=== PATIENT | female | born 1950 | race Caucasian/White ===

== ENCOUNTER 2019-08-10 11:09 | Emergency (ER) | payer MEDICARE, OTHER ==
[2019-08-10 11:20] VITALS: BP 142/68
--- NOTE | 2019-08-10 11:29 | ED Physician Documentation ---
PD HPI UPPER EXT INJURY - Stated complaint Stated Complaint: GLF - Chief complaint Chief Complaint: Trauma Ext - History obtained from History obtained from: Patient - History of Present Illness Location: Right, Clavicle, Shoulder Type of injury: Fall (fell carrying bookcase and struck right shoulder into wall as she fell. Denies head injury. Some bruising to right thigh but walking without pain. Has pain right clavicle.) Where injury occurred: Home Timing - onset: How many days ago (2) Timing - duration: Days (2) Timing - details: Abrupt onset, Still present Improved by: Rest, Meds (tylenol PRN) Worsened by: Moving, Palpating Associated symptoms: Swelling, Discolored (bruising mid clavicle area). No: Weakness, Numbness Similar symptoms before: Has not had sx before Review of Systems Constitutional: denies: Fever Nose: denies: Rhinorrhea / runny nose, Congestion Throat: denies: Sore throat Cardiac: denies: Chest pain / pressure Respiratory: denies: Cough GI: denies: Abdominal Pain Skin: denies: Abrasion (s), Laceration (s) Neurologic: denies: Focal weakness, Numbness, Altered mental status, Head injury, LOC PD PAST MEDICAL HISTORY - Past Medical History Past Medical History: No - Allergies Allergies/Adverse Reactions: Allergies Allergy/AdvReac Type Severity Reaction Status Date / Time No Known Drug Allergies Allergy Verified 08/10/19 11:14 PD ED PE NORMAL - Vitals Vital signs reviewed: Yes - General General: Alert and oriented X 3, No acute distress, Well developed/nourished - HEENT HEENT: Atraumatic - Neck Neck: Supple, no meningeal sign, No bony TTP, No adenopathy - Respiratory Respiratory: Clear bilaterally, Other (no chestwall tenderness) - Extremities Extremities: Other (Tender with some bruising and swelling at the mid clavicle on the right with a slight step-off feeling. It does not feel overriding by palpation. The shoulder itself is without any tenderness.) - Neuro Neuro: Alert and oriented X 3, No motor deficit, No sensory deficit, Normal speech Results - Vitals Vitals: Vital Signs - 24 hr 08/10/19 11:14 Temperature 36.5 C Heart Rate 77 Respiratory 18 Rate Blood Pressure 142/68 H O2 Saturation 96 Oxygen O2 Source Room air - Rads (name of study) right clavicle Radiology: Prelim report reviewed (midshaft fracture), See rad report PD MEDICAL DECISION MAKING - ED course Complexity details: reviewed results, considered differential, d/w patient Departure - Departure Disposition: 01 Home, Self Care Clinical Impression: Clavicle fracture, shaft Qualifiers: Encounter type: initial encounter Fracture type: closed Fracture alignment: displaced Laterality: right Qualified Code(s): S42.021A - Displaced fracture of shaft of right clavicle, initial encounter for closed fracture Condition: Stable Record reviewed to determine appropriate education?: Yes Instructions: ED Fx Clavicle Follow-Up: Doanld Schmid ND [Primary Care Provider] - Prudencio Johnson MD [Provider Admit Priv/Credential] - Comments: The x-ray shows the broken collarbone in the midshaft. It looks like it wants to be more positioned slightly upward then outward and so the sling in a good neutral shoulder position should be adequate. You can use the [id number] brace when you get it if you wish if it is more comfortable but I do not think would be necessary. This type of fracture typically heals well with just the sling and less use. It will hansen together at about a week and 1/2 to 2weeks but take 4 weeks to really solid up better. Gentle range of motion of the arm few times a day is okay with the arm hanging down so it is not torquing on the collarbone. No overhead reaching, push pull, lifting with the arm for 4 weeks. Follow-up with your primary care or orthopedics for recheck in about 1-1/2 weeks. At that point they can check it and likely re-x-ray to ensure its healing in adequate position. Ibuprofen or naproxen 2-3 times a day. To that add Tylenol every 4-6 hours if needed for pain. Discharge Date/Time: 08/10/19 12:39
--- NOTE | 2019-08-10 12:44 | XRAY Report ---
Reason: fell couple days ago, to right shoulder Procedure Date: 08/10/2019 Accession Number: [id number] / [id number] Procedure: XR - Clavicle RT CPT Code: Final Report FULL RESULT: EXAM: RIGHT CLAVICLE RADIOGRAPHY EXAM DATE: 08/10/2019 11:57 AM. CLINICAL HISTORY: Right shoulder pain. COMPARISON: None. TECHNIQUE: 2 views. FINDINGS: Bones: A mildly displaced slightly comminuted fracture involving the mid right clavicle is seen. Remainder osseous structures appear intact. Joints: The acromioclavicular and sternoclavicular joints are normal. No subluxation. Soft Tissues: Normal. No soft tissue swelling. IMPRESSION: Mildly displaced right mid clavicle fracture. RADIA
== END 2019-08-10 12:39 | disposition home or self-care (01) ==
LOC: ED 11:09
DX: S42.021A Displaced fracture of shaft of right clavicle, initial encounter for closed fracture (principal); W10.9XXA Fall (on) (from) unspecified stairs and steps, initial encounter; Y93.89 Activity, other specified; Y92.008 Other place in unspecified non-institutional (private) residence as the place of occurrence of the external cause
CPT/HCPCS: 99282; 99283

== ENCOUNTER 2021-09-02 08:00 | Outpatient (CLI) | payer MEDICARE ==
--- NOTE | 2021-09-02 15:53 | XRAY Report ---
PROCEDURE: Wrist 3 View RT INDICATIONS: WRIST FX TECHNIQUE: 3 casted views of the wrist were acquired. COMPARISON: 08/29/2021 FINDINGS: Bones: Comminuted displaced impacted fracture of the distal radius with dorsal angulation of the jose r distal fragment. Soft tissues: No suspicious soft tissue calcifications. IMPRESSION: No significant change in alignment of a comminuted impacted displaced distal radius fracture with ava walker angulation. Reviewed by: Ed Howe MD on 09/02/2021 3:52 PM PDT Approved by: Ed Howe MD on 09/02/2021 3:52 PM PDT Station ID: [id number]
== END 2021-09-02 23:56 | disposition home or self-care (01) ==
LOC: DI.WOS 08:00
PROVIDERS: ATTEND Orthopaedic Surgery
DX: S52.501D Unspecified fracture of the lower end of right radius, subsequent encounter for closed fracture with routine healing (principal)

== ENCOUNTER 2021-09-02 14:29 | Outpatient (CLI) | payer MEDICARE | END 2021-09-02 14:30 | disposition home or self-care (01) | LOC: LAB.S 14:29 | PROVIDERS: ATTEND Orthopaedic Surgery | DX: Z01.812 Encounter for preprocedural laboratory examination (principal); S52.501A Unspecified fracture of the lower end of right radius, initial encounter for closed fracture; Z20.822 Contact with and (suspected) exposure to COVID-19 ==

== ENCOUNTER 2021-09-03 07:12 | Day surgery (SDC) | payer MEDICARE ==
[2021-09-03] MEDS ORDERED: ACETAMINOPHEN 500 MG TABLET PO ONE (07:31)
[2021-09-03] MEDS ORDERED: CELECOXIB 100 MG CAPSULE PO ONE (07:31)
[2021-09-03] MEDS ORDERED: CEFAZOLIN SODIUM IN 0.9 % NACL 2 GM/50 ML BAG IV ONE (07:32)
[2021-09-03] MEDS ORDERED: LACTATED RINGERS 1,000 ML IV ONE ×2 (07:51→09:55)
[2021-09-03] MEDS ORDERED: NALOXONE 0.4 MG/ML VIAL IVP PRN (08:00)
[2021-09-03] MEDS ORDERED: MORPHINE 2 MG/ML CARPUJECT IVP PRN (08:00)
[2021-09-03] MEDS ORDERED: ATROPINE ABBOJECT 1 MG/10 ML SYRINGE IVP PRN (08:00)
[2021-09-03] MEDS ORDERED: ONDANSETRON 4 MG/2 ML VIAL IVP PRN (08:00)
[2021-09-03] MEDS ORDERED: LACTATED RINGERS 1,000 ML IV SCH (08:00)
[2021-09-03] MEDS ORDERED: fentaNYL 100 MCG/2 ML VIAL IVP PRN (08:00)
[2021-09-03] MEDS ORDERED: MIDAZOLAM 2 MG/2 ML VIAL ONE ×2 (08:00→08:36)
[2021-09-03] MEDS ORDERED: HYDROmorphone 0.5 MG/0.5 ML SYRINGE IVP PRN (08:00)
--- NOTE | 2021-09-03 08:00 | ANESTHESIA ---
Pre-Anesthesia VS, & Labs - Diagnosis right distal radius fracture - Procedure closed reduction percutaneous pinning, possible ORIF of Right radius fracture Vital Signs: Temp Pulse Resp BP Pulse Ox 36.3 C L 74 16 135/65 H 96 09/03/21 07:33 09/03/21 07:33 09/03/21 07:33 09/03/21 07:33 09/03/21 07:33 Height: 5 ft 6 in Weight (kg): 63 kg Body Mass Index: 22.4 BMI Classification: Healthy weight - NPO >8 hours - Is Patient ?: No Home Medications and Allergies Home Medications: Ambulatory Orders No Known Home Medications 09/02/21 No Known Home Medications 09/02/21 Allergies/Adverse Reactions: Allergies Allergy/AdvReac Type Severity Reaction Status Date / Time No Known Drug Allergies Allergy Verified 08/10/19 11:14 Anes History & Medical History - Anesthetic History Anesthesia Complications: reports: No previous complications - Medical History Cardiovascular: reports: None Pulmonary: reports: None Gastrointestinal: reports: None Urinary: reports: None Neuro: reports: None Musculoskeletal: reports: None Endocrine/Autoimmune: reports: None Blood Disorders: reports: None Skin: reports: None Smoking Status: Never smoker Psychosocial: reports: No issues indicated History of Cancer?: No - Surgical History General: reports: Appendectomy Eyes Ears Nose Throat (EENT): reports: Tonsil/Adenoidectomy Gynecologic: reports: section, Hysterectomy Exam General: Alert, Oriented x3, Cooperative, No acute distress Dental: WNL Mouth Openin Fingerbreadth Neck Mobility: Normal Mallampati classification: II Thyromental Distance: 4-6 cm Respiratory: Lungs clear, Normal breath sounds, No respiratory distress, No accessory muscle use Cardiovascular: Regular rate, Normal S1, Normal S2, No murmurs Mental/Cognitive Status: Alert/Oriented X3, Normal for patient Plan Anesthesia Type: General, Axillary Block (right) Regional Block: Per Surgeon's request for Post Op pain control Consent for Procedure(s) Verified and Reviewed: Yes Code Status: Attempt Resuscitation ASA classification: 1-Healthy patient Is this case an emergency?: No
[2021-09-03] MEDS ORDERED: fentaNYL 100 MCG/2 ML VIAL ONE (08:01)
[2021-09-03] MEDS ORDERED: PROPOFOL 200 MG/20 ML VIAL IVP ONE ×2 (08:01→09:57)
[2021-09-03] MEDS ORDERED: ROPIVACAINE 0.5% PF 20 ML AMPULE ONE (08:01)
[2021-09-03] MEDS ORDERED: SODIUM CHLORIDE 0.9% 10 ML VIAL IVP ONE (08:04)
[2021-09-03] MEDS ORDERED: DEXAMETHASONE 4 MG/ML VIAL ONE ×2 (08:19→09:57)
[2021-09-03] MEDS ORDERED: oxyCODONE 5 MG TABLET PO PRN (09:56)
[2021-09-03] MEDS ORDERED: ONDANSETRON 4 MG/2 ML VIAL ONE (09:57)
--- NOTE | 2021-09-03 10:04 | OPERATIVE REPORT ---
Operative Report - General Procedure Date: 09/03/21 Planned Procedure: Closed reduction, percutaneous pinning, possible open reduction internal fixation right distal radius fracture Pre-Op Diagnosis: Closed, comminuted intra-articular and extra-articular fracture right dista Procedure Performed: Closed reduction, percutaneous K wire fixation with 0.62 inch wires, application of volar short arm padded fiberglass splint Post Op Diagnosis: Same as preoperative diagnosis - Procedure Note Primary Surgeon: Ignacoi Zavala MD Secondary Surgeon: Faiza NELSON Anesthesia Provider: Annelise Lloyd CRNA Anesthesia Technique: General ET tube, Regional block Estimated Blood Loss (mL): 1 Indications: This is a relatively healthy 70-year-old right hand dominant woman who took a fall from a standing height within the past week. She sustained a closed injury to the right wrist with pain and swelling localized to right wrist. The injury happened in [place]. She has been immobilized in the splint and was seen in my office for orthopedic consultation yesterday. She had swelling, tenderness and mild deformity to her right wrist, skin intact, neurovascular intact, tendon function intact but limited wrist and finger motion. Her x-rays and CT scan mushtaq wed a complex, comminuted, displaced intra-articular and extra-articular fracture of the right distal radius associated with osteopenia. The patient was agreeing to a informed consent, from close reduction and percutaneous pinning to plate fixation including spanning plate. Findings: There is a fracture of the distal radius was comminuted, shortened and angulated but seem to align relatively well with traction using ligamentotaxis, direct manipulation at fracture site.The fracture was both intra-articular and extra- articular with osteopenia Complications: None - Other Other Information/Narrative: The patient was brought to the operating room, placed in a supine position with the right arm placed over arm extension table. After satisfactory anesthesia was achieved, the right upper extremity was prepped and draped in a sterile manner in the usual fashion. A pneumatic tourniquet had been applied to the proximal right arm over cast padding. The C arm image intensifier was covered with sterile drape. A timeout procedure was performed by the entire operating room team and all were in agreement. The patient had been consented for closed reduction and percutaneous pin fixation as well as open reduction internal fixation with plate and screw fixation. Fingertrap traction to all 5 fingers was applied with a traction bow over a sterile bump. The bump was applied to the volar aspect, forearm pronated. Traction was applied with some palmar flexion, mild ulnar deviation and direct manipulation of the distal radius dorsally. The C-arm image intensifier was utilized and showed satisfactory alignment on both AP and lateral views of the right wrist. It was chosen to use K wire fixation using the ulna because of her osteopenia. 3 K wires was inserted from distal ulna into the distal radius. These 3 K wires were left protruding from skin in both ulnar and radial sides. 2 additional K wires were inserted. 1 K wire was inserted from the dorsal ulnar corner and driven proximally and oblique direction. The last pin was inserted from the radial styloid into the distal radius. Bicortical fixation was achieved with all of the pins. The C-arm image intensifier was utilized to verify satisfactory alignment of fracture and pin position. The K wires were covered with sterile plastic balls to cover the protruding K wire pins. Padded pin covers were applied, cast padding and a padded short arm fiberglass splint. She tolerated the procedure well. There is no clinical deformity.A physician emergency room physician assistant was utilized during the procedure to help with traction, prepping and draping, splint application
--- NOTE | 2021-09-03 10:34 | ANESTHESIA POST OP EVALUATION ---
Anesthesia Post Eval - Post Anesthesia Eval Vitals: Last Vital Signs Temp 36.4 C L 09/03/21 10:15 Pulse 66 09/03/21 10:15 Resp 20 09/03/21 10:15 BP 128/65 09/03/21 10:15 Pulse Ox 100 09/03/21 10:15 CV Function Including HR & BP: Stable Pain Control: Satisfactory Nausea & Vomiting: Negative Mental Status: Baseline Respiratory Status: Airway Patent Hydration Status: Satisfactory Anesthesia Complications: None
--- NOTE | 2021-09-03 10:43 | XRAY Report ---
PROCEDURE: OR C-Arm Procedure INDICATIONS: R WRIST FX TECHNIQUE: 5 intraoperative fluoroscopic images of right wrist COMPARISON: Wrist radiograph dated 09/02/[address] of wrist dated 08/29/2021. FINDINGS: Intraoperative fluoroscopic images of right wrist shows internal fixation of previously noted distal radial fracture. Wrist alignment is anatomic. Total fluoroscopy time is 22 seconds. IMPRESSION: Fluoroscopy guidance was provided intraoperatively for ORIF of right distal radius. Reviewed by: Ricky Toussaint MD on 09/03/2021 10:42 AM PDT Approved by: Ricky Toussaint MD on 09/03/2021 10:42 AM PDT Station ID: [id number]
[2021-09-03 11:30] VITALS: BP 132/60
== END 2021-09-03 07:13 | disposition home or self-care (01) ==
LOC: SDS 07:12
PROVIDERS: ATTEND Orthopaedic Surgery
DX: S52.571A Other intraarticular fracture of lower end of right radius, initial encounter for closed fracture (principal); M85.88 Other specified disorders of bone density and structure, other site
CPT/HCPCS: 25606; A9270; C1713; J0690; J7120